=== PATIENT | female | born 1955 | race Caucasian/White ===

== ENCOUNTER 2022-02-07 08:10 | Outpatient (CLI) | payer MEDICARE | END 2022-02-07 08:11 | disposition home or self-care (01) | LOC: BICULT 08:10 | PROVIDERS: ATTEND Family Medicine | DX: R74.8 Abnormal levels of other serum enzymes (principal); K80.20 Calculus of gallbladder without cholecystitis without obstruction | CPT/HCPCS: 76705 ==

== ENCOUNTER 2025-06-11 10:15 | Outpatient (CLI) | payer MEDICARE, MEDICAID | END 2025-06-11 10:16 | disposition home or self-care (01) | LOC: PET 10:15 | PROVIDERS: ATTEND Family Medicine | DX: R91.1 Solitary pulmonary nodule (principal) | CPT/HCPCS: 78816; A9552 ==

== ENCOUNTER 2025-07-03 08:45 | Outpatient (CLI) | payer MEDICARE, MEDICAID | END 2025-07-03 08:46 | disposition home or self-care (01) | LOC: LABBT 08:45 | PROVIDERS: ATTEND Thoracic Surgery (Cardiothoracic Vascular Surgery) | DX: Z01.810 Encounter for preprocedural cardiovascular examination (principal); R91.1 Solitary pulmonary nodule | CPT/HCPCS: 93005; 93010 ==

== ENCOUNTER 2025-08-13 14:08 | Outpatient (CLI) | payer MEDICARE, MEDICAID | END 2025-08-13 14:09 | disposition home or self-care (01) | LOC: RAD 14:08 | PROVIDERS: ATTEND Thoracic Surgery (Cardiothoracic Vascular Surgery) | DX: R91.1 Solitary pulmonary nodule (principal); J98.11 Atelectasis; J90 Pleural effusion, not elsewhere classified | CPT/HCPCS: 71046 ==